=== PATIENT | female | born 1990 | race Caucasian/White ===

== ENCOUNTER → 2017-10-02 15:24 | Outpatient (CLI) | payer OTHER, SELFPAY ==
[2017-10-02 17:47] LABS: Hematocrit 30.2 % (36-46); Hemoglobin 10.7 g/dL (12.0-16.0)
[2017-10-02 18:20] LABS: GTT (PREG) 1 Hour PP 50gm Dose 136 mg/dL (76-139)
== END ==
PROVIDERS: PCP General Practice; Visit Provider Family Medicine
DX: O26.90 Pregnancy related conditions, unspecified, unspecified trimester (principal); Z34.92 Encounter for supervision of normal pregnancy, unspecified, second trimester
CPT/HCPCS: 36415; 82950; 85014; 85018; 86850

== ENCOUNTER → 2017-10-05 15:55 | Outpatient (CLI) | payer OTHER, SELFPAY | PROVIDERS: PCP General Practice; Visit Provider Family Medicine | DX: Z34.02 Encounter for supervision of normal first pregnancy, second trimester (principal) | CPT/HCPCS: 36415; 86850 ==

== ENCOUNTER → 2017-12-01 15:44 | Outpatient (CLI) | payer OTHER, SELFPAY | PROVIDERS: PCP General Practice; Visit Provider Family Medicine | DX: Z34.93 Encounter for supervision of normal pregnancy, unspecified, third trimester (principal) | CPT/HCPCS: 87081; 87653 ==

== ENCOUNTER → 2017-12-08 14:52 | Outpatient (CLI) | payer OTHER, SELFPAY ==
[2017-12-08 15:55] LABS: Alanine Aminotransferase 55 IU/L (9-52); Albumin 3.5 g/dL (3.5-5.0); Alkaline Phosphatase 153 U/L (38-126); Aspartate Aminotransferase 53 IU/L (14-36); Bilirubin Total 0.3 mg/dL (0.2-1.3); Blood Urea Nitrogen 6 mg/dL (7-17); Calcium 8.9 mg/dL (8.4-10.2); Carbon Dioxide 18 mmol/L (22-32); Chloride 109 mmol/L (98-107); Estimated Glomerular Filt Rate > 60.0 mL/min (>60); Globulin 3.4 g/dL (1.7-4.1); Glucose 109 mg/dL (70-100); HEMOLYSIS < 15 (0-50); Potassium 3.9 mmol/L (3.4-5.1); Sodium 139 mmol/L (137-145); Total Protein 6.9 g/dL (6.3-8.2)
[2017-12-10 11:43] LABS: Bile Acids, Total 4.1 umol/L (< 10.1)
== END ==
PROVIDERS: PCP General Practice; Visit Provider Family Medicine
DX: L28.2 Other prurigo (principal)
CPT/HCPCS: 36415; 80053; 82239

== ENCOUNTER 2017-12-11 14:01 | Outpatient (CLI) | payer OTHER, SELFPAY ==
--- NOTE | 2017-12-11 14:49 | PM.OBTRLD ---
Visit Information Visit Information Date of evaluation: 12/11/17 Primary OB Provider: Leah Wagner Reason for Evaluation: Yes rule out labor and Yes rupture of membranes Evaluation Evaluation Baseline heart rate: 135 Variability: Moderate (11-25) monitor accelerations: Present monitor decelerations: Absent Category of Tracing: I Cervical dilation (cm): 0 Cervical effacement (%): 50 Non-invasive Membranes Rupture Test: negative Diagnosis, Plan/Disposition Final Diagnosis (1) Irregular contractions: Current Visit: No Status: Acute Plan/Disposition Plan: Pt without ROM. Not in labor. OB Disposition: home
== END 2017-12-11 15:02 | disposition home or self-care (01) ==
LOC: LABOR 14:54 → OB 12-15 08:47
PROVIDERS: PCP General Practice; Visit Provider Family Medicine
DX: Z3A.37 37 weeks gestation of pregnancy (principal); O09.893 Supervision of other high risk pregnancies, third trimester
CPT/HCPCS: 59025; 84112; G0378; G0379

== ENCOUNTER 2017-12-23 13:26 | Outpatient (CLI) | payer OTHER, SELFPAY ==
--- NOTE | 2017-12-23 14:13 | PM.OBTRLD ---
Visit Information Visit Information Date of evaluation: 12/23/17 Primary OB Provider: Leah Wagner Reason for Evaluation: Yes rupture of membranes Comments/Additional reasons for admission: Pt with large gush of fluid this afternoon, clear. No significant contractions. No vaginal bleeding. Exam Narrative Exam Narrative: Gen: NAD, sitting comfortably in bed, appears well Abd: soft, gravid, nontender Objective Labs Labs: Abdominal u/s: Fetus vertex position Evaluation Evaluation Baseline heart rate: 145 Variability: Moderate (11-25) monitor accelerations: Present monitor decelerations: Absent Category of Tracing: I Cervical dilation (cm): 2 Cervical effacement (%): 50 station: -2 Non-invasive Membranes Rupture Test: negative Diagnosis, Plan/Disposition Final Diagnosis (1) Fluid loss: Current Visit: Yes Status: Acute Plan/Disposition Plan: Amniosure negative. Not in labor. Stable for d/c home. Membranes stripped today. OB Disposition: home
== END 2017-12-23 14:28 | disposition home or self-care (01) ==
LOC: LABOR 14:27 → OB 12-24 16:54
PROVIDERS: PCP General Practice; Visit Provider Family Medicine
DX: Z03.71 Encounter for suspected problem with amniotic cavity and membrane ruled out (principal); Z3A.39 39 weeks gestation of pregnancy
CPT/HCPCS: 59025; 76815; 84112; G0378; G0379

== ENCOUNTER 2017-12-25 14:32 | Observation (INO) | payer OTHER, SELFPAY ==
--- NOTE | 2017-12-25 16:34 | PM.OBTRLD ---
Visit Information Visit Information Date of evaluation: 12/25/17 Primary OB Provider: Leah Wagner Reason for Evaluation: Yes rule out labor Evaluation Evaluation Baseline heart rate: 145 Variability: Moderate (11-25) monitor accelerations: Present monitor decelerations: Absent Contraction Frequency (minutes): 3 Uterine Contraction Intensity: Moderate Category of Tracing: I Cervical dilation (cm): 1 Cervical effacement (%): 50 station: -1 Diagnosis, Plan/Disposition Final Diagnosis (1) Irregular contractions: Current Visit: No Status: Acute Plan/Disposition OB Disposition: home
== END 2017-12-25 20:00 | disposition home or self-care (01) ==
PROVIDERS: Admitting Provider Family Medicine; PCP General Practice; Visit Provider Family Medicine
DX: O62.2 Other uterine inertia (principal); Z3A.39 39 weeks gestation of pregnancy
CPT/HCPCS: 59025; 59050; G0378; G0379

== ENCOUNTER 2017-12-26 07:12 | Inpatient (IN) | payer OTHER, SELFPAY ==
--- NOTE | 2017-12-26 09:06 | P.HPOB_ITS ---
OB HPI Date/Time Date of admission: 12/26/17 Date Patient Seen: 12/26/17 Time Patient Seen: 08:59 History of Present Condition Chief complaint: OBS : 1 Para: 0 Estimated Date of Delivery: 12/29/17 Estimated Gestational Age (weeks): 39 Narrative: Maddie Armijo is a 27 year old female one para 0 seen and followed by Dr. Leah Wagner during this . The patient transferred care [facility] [employer] [facility] at approximately 27 weeks we obtained by fax her early laboratory studies. She had an early ultrasound at 10 weeks . Her 1st and 2nd trimester screening for abnormalities was negative. Her initial hematocrit was 399. With a normal platelet count. Her hepatitis B surface antigen was negative. Her rubella screen was positive. Her rubella was positive. Her VDRL was nonreactive. Chlamydia and GC screens were negative. Hepatitis a was negative. Her Pap smear appeared to be ASCUS with no HPV done. Her HIV was nonreactive. GBS screen done here at [facility] was negative. Subsequent hematocrit at 30 weeks of was 30. Her 1 hr Glucola screen was 136. The patient was seen and followed at [facility] from the 27th week of her . Her blood pressures remained normotensive. And her urines remained negative for glucose and protein. Under the care at [facility] her weight went from 181 lb to 194 lb. She had adequate fundal growth. The patient is Rh negative and received RhoGAM at 28 weeks of . The patient was seen the day before and her cervix was approximately 1 cm dilated. The patient presented at at 0 700 hr and her cervix was 4 cm. The patient was admitted. Indications Other reason(s) for admission: Active labor History of Present care: good care and pounds weight gain (30) Dating criteria: LMP confirmed by 1st trimester US Ultrasounds: normal 1st trimester US and normal mid trimester US Obstetrical complications: none Medical complications: none Preadmission Labs Blood type: A (-) negative -: Antibody screen: negative, Cystic fibrosis screen: unknown, GBS status: negative, HBsAG: negative, HIV: negative, HSV 1: positive, HSV 2: negative and RPR/VDLR: negative -: Chlamydia screen: not detected and Gonorrhea screen: not detected -: Rubella: immune and Varicella: unknown HCT: 30 HCAB: negative PAP: Abnormal Integrated screen: Negative Sequential screen: Negative Quad screen: Normal Cell-free DNA: Not done Meds Home Medications Medication Instructions Recorded Confirmed Type omeprazole 10 mg capsule,delayed 10 mg PO DAILY #30 cap 12/15/17 Rx release triamcinolone acetonide 0.1 % 1 applictn TOP BID #80 gram 12/15/17 Rx topical cream Review of Systems Review of Systems All systems reviewed & are unremarkable except as noted in HPI and below Exam Const General: cooperative and healthy appearing [facility] Head: normal to inspection Ears: hearing grossly normal bilaterally Nose: external nose normal Face and sinus: normal facial exam Mouth: oral mucosae normal, lip normal, tongue normal and moist mucous membranes Teeth and gingiva: dentition normal Throat: posterior oropharynx normal Eyes General: appearance normal, both eyes and all related structures Neck Neck: normal visual inspection and full ROM Chest Chest: normal inspection of the chest and normal palpation of entire chest wall Breast inspection: normal inspection of the breasts and normal inspection of the axillae Breast Palpation: normal palpation of the breasts and normal palpation of the axillae Resp Effort & Inspection: normal respiratory effort Auscultation: clear to auscultation bilaterally Cardio Palpation: normal PMI Rate: regular rate Rhythm: regular rhythm Heart Sounds: S1 normal and S2 normal GI Inspection: normal to inspection Palpation: soft and no hepatosplenomegaly Percussion: normal to percussion Auscultation: normal bowel sounds External Female Exam: external appearance normal and normal appearance of the urethra Speculum Exam - Vagina: normal appearance of the vagina and normal vaginal discharge Manual OB Exam: dilated (5 cm), effaced (100%) and station (-1) Uterus Location (Fundal Height): 37 Presentation: vertex Estimated Weight (lbs): 7 Back/Spine/Pelvis Thoracic/Lumbar Spine: thoracic and lumbar spine normal to inspection Skin General: no rashes or lesions noted Neuro General: alert, oriented x3, tone normal and moves all extremities Cognition: normal cognition Speech: speech normal Gait: normal gait Motor: muscle tone normal throughout Sensory Exam: no sensory deficits noted Extrem General: normal to inspection and normal exam except as noted Psych Appearance: grossly normal and well kempt Mental Status: mental status grossly normal Speech and Movement: speech and movement normal Assessment and Plan (1) Spontaneous onset of labor: Onset Date: ~12/26/17 Problem details: Spontaneous onset of labor approximately 0 600 hr Current visit: Yes Status: Acute Admit patient to labor and delivery Start IV Routine laboratory studies Epidural as indicated Artificial rupture membrane Plan: Plan: Please see above
[2017-12-26 09:27] LABS: Add Manual Diff / Slide Review NO; Basophils Percent Auto 0.2 % (0-2); Eosinophils Percent Auto 0.6 % (2-4); Hematocrit 34.4 % (36-46); Hemoglobin 11.5 g/dL (12.0-16.0); Mean Corpuscular HGB Conc 33.5 % (30-36); Mean Corpuscular Hemoglobin 28.7 PG (26-34); Mean Corpuscular Volume 85.9 fL (80-100); Monocytes Percent Auto 5.5 % (3-14); Neutrophils Absolute Auto 9000 /uL (3000-5900); Neutrophils Percent Auto 75.7 % (50-75); Platelet Count 203 X10^3/uL (150-400); Red Cell Distribution Width 13.5 % (11.6-14.8); White Blood Cell Count 11.9 X10^3/uL (4.5-11.0)
[2017-12-26 10:02] VITALS: BP 120/76
[2017-12-26] MEDS: LACTATED RINGERS 1,000 ML 125 ML IV ×2 (11:47→14:05)
--- NOTE | 2017-12-26 16:17 | PM.OBPNLAB ---
Date/Time Date Patient Seen: 12/26/17 Time Patient Seen: 10:30 Pain Control Pain control: tolerating well Pelvic Exam Dilation (cm): 5 Effacement (%): 100 station: -1 Amniotic membrane status: Ruptured Comments: After informed consent, AROM performed with production of clear fluid. Contractions Date/Time contractions began: 9am 12/25/17 Contractions on admission: regular Monitor mode: External Contraction frequency (min): 6 Contraction duration (min): 1 Contraction pattern: Irregular Contraction intensity: Strong/Firm Status status: Category l Heart Rate Baseline: 140 Monitor Accelerations: Present Monitor Decelerations: Absent Monitor Variability: Moderate Assessment and Plan Comments: 27yo at 39w4d who presented in active labor. Minimal progress thus far, AROM performed with production of clear fluid. Rh negative, GBS negative. - Expectant management, anticipate - FHT reassuring - GBS negative, no prophylaxis indicated - Epidural for pain control if desired
[2017-12-26] MEDS: LACTATED RINGERS 1,000 ML 100 ML IV (17:00)
--- NOTE | 2017-12-26 21:04 | PM.OBPRVD ---
Delivery date: 12/26/17 Intrapartal events: None Induction method: none Delivery augmentation: rupture of membranes Delivery monitor: external FHT Route of delivery: Episiotomy description: None Laceration description: Perineal - 1st Degree Delivery repair: chromic (3-0) Estimated blood loss (mL): 150 Anesthesia type: Epidural Complications: None Narrative: PROCEDURE: at 39w4d presented in active labor and was admitted to Labor and Delivery. The patient progressed through the 1st stage over 34.5 hours. AROM was performed to help labor progress with production of clear fluid. Pain was controlled with an epidural. The patient progressed through the 2nd stage over 1 hour and delivered a viable male infant with APGARs 8/9 at 20:36 via . The perineum and vagina were inspected with 1st degree laceration repaired with 3-O Chromic. PREPROCEDURE DIAGNOSIS: Intrauterine at 39w4d GBS negative RH positive POSTPROCEDURE DIAGNOSIS: Intrauterine at 39w4d, delivered Same as preprocedure PROCEDURE: Spontaneous vaginal delivery ROM APPEARANCE: Clear BABY A DELIVERY TIME: 20:36 BABY A WEIGHT: [id number] BABY A POSITION: LOT BABY A NUCHAL CORD: No PLACENTA DELIVERY TIME: 20:40 PLACENTA APPEARANCE: Intact Baby 1: gender: Male Presentation: vertex Placenta delivery description: Spontaneous cord vessel description: 3 Vessels score (1 min): 8 score (5 min): 9 Plan for aftercare: Normal care Cord blood sent due to Rh negative status
[2017-12-26] MEDS: IBUPROFEN 600 MG TABLET PO (23:31)
[2017-12-27] MEDS: PRENATAL VIT,CALC/IRON/FOLIC 1 TABLET 1 TAB PO (08:33)
[2017-12-27] MEDS: DOCUSATE 250 MG CAPSULE PO (08:33)
[2017-12-27] MEDS: FERROUS GLUCONATE 324 MG TABLET PO (08:33)
[2017-12-27] MEDS: IBUPROFEN 600 MG TABLET PO ×2 (08:33→14:39)
--- NOTE | 2017-12-27 12:52 | PM.OBPN.1 ---
Subjective - OB Patient comments: no complaints baby status: doing well feeding status: exclusively breast feeding Narrative: Pt is doing well thus far. Her lochia is decreasing appropriately and she is passing gas. She has ambulated in the room. Her pain is adequately controlled. She is with good latch, no pain. Date Patient Seen: 12/27/17 Time Patient Seen: 12:30 Exam Narrative Exam Narrative: Gen: NAD, sitting comfortably on bench, appears well CV: RRR, no murmurs Resp: clear to auscultation bilaterally Abd: soft, appropriately tender, fundus firm and below the umbilicus, normoactive bowel sounds Ext: trace edema Objective Labs Result Diagrams: 12/26/17 08:50 Labs: Laboratory Results - last 24 hr 12/27/17 07:05 Maternal Bleed Negative Assessment & Plan (1) Spontaneous onset of labor: Problem details: Spontaneous onset of labor approximately 0 600 hr Status: Acute Current Visit: Yes (2) (spontaneous vaginal delivery): Status: Acute Current Visit: Yes Plan Comments: 27yo PPD #1 s/p without complications. Pt doing well thus far. - Normal care - Rhogam due to Rh positive baby - support Time Spent With Patient Total time spent is greater than 50% in coordination of care (as documented) at patient's floor/unit and/or counseling patient: 25 - 35 minutes
[2017-12-27] MEDS: RHO(D) IMMUNE GLOBULIN 1,500 UNIT SYRINGE 1500 UNIT IM (13:01)
[2017-12-28] MEDS: IBUPROFEN 600 MG TABLET PO ×2 (01:11→08:43)
[2017-12-28] MEDS: PRENATAL VIT,CALC/IRON/FOLIC 1 TABLET 1 TAB PO (08:43)
[2017-12-28] MEDS: DOCUSATE 250 MG CAPSULE PO (08:43)
--- NOTE | 2017-12-28 09:53 | P.DS_ITS ---
Discharge Providers Date of admission: 12/26/17 09:18 Primary care physician: Jacques Brush Consults: 12/26/17 21:23 Consult to Group Supervisor Yard Routine Comment: Discharge provider: Leah Wagner MD Discharge Date: 12/28/17 Summary Date Patient Seen: 12/28/17 Time Patient Seen: 08:00 Hospital Course: The patient was admitted in active labor. AROM was performed with production of clear fluid to help labor progressed. She received an epidural for pain control. The patient then had a spontaneous vaginal delivery of a viable baby boy on 12/26/2017 without any complications. Baby weighed 6 lb 15 oz. A first- degree perineal laceration was repaired. , there were no complications. At the time of discharge the patient was voiding, ambulating, passing flatus without difficulty. Her lochia was decreasing appropriately. She is breast feeding with good latch. She is undecided regarding control, however has used the Nexplanon the past. Peripartum Data Infant Delivery Method: Natural Vaginal Laceration description: Perineal - 1st Degree Episiotomy description: None Procedures: Spontaneous vaginal delivery complications: none [place] 1: Gender: Male Disposition of : home Discharge Diagnosis (1) Spontaneous onset of labor: Status: Acute Problem Details: Spontaneous onset of labor approximately 0 600 hr (2) (spontaneous vaginal delivery): Status: Acute Status at Discharge Functional status at discharge: independent ambulation Overall status at discharge: patient is progressing back to baseline Time Spent with Patient Total time spent providing and/or coordinating discharge services: Greater than 30 minutes Specific discharge activities: No intercourse for 6 weeks Objective Labs Result Diagrams: 12/26/17 08:50 Discharge Plan Discharge Plan Patient Disposition: Home Discharge Med Rec/Prescriptions Prescriptions: New acetaminophen 325 mg Tablet 650 mg PO Q6HR PRN (Reason: Pain, Mild (1-3)) Qty: 30 RF: 0 benzocaine-menthol [Dermoplast (with menthol)] 20-0.5 % Aerosol 1 spray Topical Q1HR PRN (Reason: perineal pain) Qty: 15 RF: 0 ibuprofen 600 mg Tablet 600 mg PO Q6HR PRN (Reason: Pain, Mild (1-3)) Qty: 30 RF: 0 docusate sodium 250 mg Capsule 250 mg PO DAILY Qty: 30 RF: 0 lanolin [[id number]] Cream 1 applic Topical PRN PRN (Reason: Tenderness) Qty: 15 RF: 0 vit,[id number] [Prenatabs Rx] 29 mg iron- 1 mg Tablet 1 tab PO DAILY Qty: 30 RF: 0 Continue omeprazole 10 mg capsule,delayed release(DR/EC) 10 mg PO DAILY Qty: 30 RF: 2 Discontinued triamcinolone acetonide 0.1 % cream 1 applictn TOP BID Qty: 80 RF: 0 Follow up/Referrals: Leah Wagner MD [Physician] - 6 Weeks Provider Discharge Instructions Diet: Regular Skin/Wound/Dressing Care Report to your healthcare provider any signs of infection, such as:: chills, fever, increased pain and unusual drainage Visit Report/Discharge Packet Instructions: DI for Labor and Delivery, Vaginal Discharge Data Primary Care Provider: Jacques Brush Attending Provider: Leah Wagner Admit Date/Time: 12/26/17 09:18
[2017-12-28 10:11] VITALS: BP 120/76; PULSE 82; RESP 16; TEMP 36.9
== END 2017-12-28 13:20 | disposition home or self-care (01) | DRG 807 ==
PROVIDERS: Admitting Provider Family Medicine; PCP General Practice; Visit Provider Family Medicine
DX: O70.0 First degree perineal laceration during delivery (principal); Z37.0 Single live birth; Z3A.39 39 weeks gestation of pregnancy
CPT/HCPCS: 01967; 59050; 59410; 85025; 85461; 86850; 86870; 86900; 86901; G0378; G0379; J2790

== ENCOUNTER → 2019-12-09 09:11 | Outpatient (CLI) | payer OTHER, SELFPAY ==
[2019-12-09 12:20] LABS: Hematocrit 29.6 % (36-46); Hemoglobin 10.1 g/dL (12.0-16.0)
[2019-12-09 12:53] LABS: GTT (PREG) 1 Hour PP 50gm Dose 174 mg/dL (76-139)
== END ==
PROVIDERS: PCP General Practice; Referring Provider Family Medicine; Visit Provider Family Medicine
DX: Z34.90 Encounter for supervision of normal pregnancy, unspecified, unspecified trimester (principal); Z3A.24 24 weeks gestation of pregnancy
CPT/HCPCS: 36415; 82950; 85014; 85018; 86850

== ENCOUNTER → 2019-12-22 06:49 | Outpatient (CLI) | payer OTHER, SELFPAY ==
[2019-12-22 08:45] LABS: Glucose Fasting Gestational 87 mg/dL (76-95)
[2019-12-22 10:26] LABS: Glucose 1 Hour Gest 187 mg/dL (76-180)
[2019-12-22 10:29] LABS: Glucose Tol Interp,Gestational INTERPRETATION
[2019-12-22 12:21] LABS: Glucose 3 Hour Gest 137 mg/dL (76-140)
[2019-12-22 15:39] LABS: Glucose 2 Hour Gest 167 mg/dL (76-155)
== END ==
PROVIDERS: PCP General Practice; Referring Provider Family Medicine; Visit Provider Family Medicine
DX: R82.90 Unspecified abnormal findings in urine (principal)
CPT/HCPCS: 36415; 82951; 82952

== ENCOUNTER → 2020-02-01 15:20 | Outpatient (CLI) | payer OTHER, SELFPAY ==
[2020-02-02 11:39] LABS: Strep Grp B PCR NEG for Grp B Strep
== END ==
PROVIDERS: PCP General Practice; Visit Provider Family Medicine
DX: Z34.90 Encounter for supervision of normal pregnancy, unspecified, unspecified trimester (principal); Z3A.36 36 weeks gestation of pregnancy
CPT/HCPCS: 87651; 87653

== ENCOUNTER → 2020-02-15 14:36 | Outpatient (CLI) | payer OTHER, SELFPAY ==
--- NOTE | 2020-02-15 14:37 | DI.US.S_ITS ---
PROCEDURE: US OB LIMITED INDICATIONS: size < dates OUTSIDE/PRIOR DATING DATA: First dating scan (date and location): 07/15/2019 . Estimated date of delivery (SINA) from first dating scan: 02/28/2020 . TECHNIQUE: Real-time scanning was performed of the fetus, with image documentation and biometric measurements. Endovaginal scanning: No COMPARISON: None. FINDINGS: General: A single living intrauterine gestation is present. Presentation: Anterior Placenta: Placental position is vertex, without previa. Amniotic fluid index: 15.8 cm, normal range is 5-24 cm. heart rate: 151 beats per minute. Maternal cervical canal: 4.9 cm cm long. Normal lower limit is 2.5 cm. biometrics: Biparietal diameter: 37 weeks Head circumference: 37 weeks Abdominal circumference: 37 weeks 3 days Femur length: 37 weeks Estimated gestational age from initial scan: 38 weeks 1 day Composite gestational age from present scan: 37 weeks 1 Estimated weight and percentile: 3142 g, 38th percentile Measurement variability for biometric dating: +/- 7 days from 14 weeks to 15 weeks 6 days gestation, +/- 10 days from 16 weeks to 21 weeks 6 days gestation, +/- 2 weeks from 22 weeks to 27 weeks 6 days gestation, +/- 3 weeks for 28 weeks gestation or later. weight reference: 4500 g or EFW >90/95% is considered macrosomia or large for gestational age. EFW <10% is small for gestational age. EFW 5% or less is considered intra-uterine growth restriction. Other: Not applicable. IMPRESSION: Single living IUP redemonstrated and interval growth is normal. Dictated by: Yury Frias [facility] Interpreted: Leticia Mayberry MD on 02/15/2020 at 15:36 Approved by: Leticia Mayberry M.D. on 02/15/2020 at 16:54
== END ==
PROVIDERS: PCP General Practice; Referring Provider Family Medicine; Visit Provider Family Medicine
DX: O26.843 Uterine size-date discrepancy, third trimester (principal); Z3A.37 37 weeks gestation of pregnancy
CPT/HCPCS: 76815

== ENCOUNTER 2020-02-22 20:54 | Inpatient (IN) | payer OTHER, SELFPAY ==
[2020-02-22 20:55] VITALS: BP 115/63
[2020-02-22 21:22] LABS: COVID19 -Nasal RAPID Negative (Negative)
[2020-02-22 21:33] LABS: Add Manual Diff / Slide Review NO; Basophils Absolute Auto 0 /uL (0-100); Basophils Percent Auto 0.5 % (0-2); Eosinophils Absolute Auto 100 /uL (0-450); Eosinophils Percent Auto 1.3 % (2-4); Hematocrit 32.4 % (36-46); Hemoglobin 10.7 g/dL (12.0-16.0); Lymphocytes Absolute Auto 3000 /uL (1100-4500); Lymphocytes Percent Auto 32.9 % (25-40); Mean Corpuscular HGB Conc 33.1 % (30-36); Mean Corpuscular Hemoglobin 28.4 PG (26-34); Mean Corpuscular Volume 85.8 fL (80-100); Monocytes Absolute Auto 600 /uL (0-900); Monocytes Percent Auto 6.5 % (3-14); Neutrophils Absolute Auto 5300 /uL (1500-7000); Neutrophils Percent Auto 58.8 % (50-75); Platelet Count 201 X10^3/uL (150-400); Red Blood Cell Count 3.78 X10^6/uL (4.0-5.2); Red Cell Distribution Width 14.9 % (11.6-14.8); White Blood Cell Count 9.1 X10^3/uL (4.5-11.0)
[2020-02-22] MEDS: miSOPROStoL 25 MCG TABLET VAG (22:16)
[2020-02-23 06:16] LABS: Glucose 109 mg/dL (70-100)
[2020-02-23] MEDS: LACTATED RINGERS 1,000 ML 100 ML IV (08:18)
[2020-02-23] MEDS: OXYTOCIN PREMIX 30 UNIT/500 ML PLAST..BAG IV (08:19)
--- NOTE | 2020-02-23 08:52 | P.HPOB_ITS ---
OB HPI Date/Time Date of admission: 02/22/20 Date Patient Seen: 02/23/20 Time Patient Seen: 07:45 History of Present Condition Chief complaint: EVAL OF LABOR : 2 Para: 1 Estimated Date of Delivery: 02/28/20 Estimated Gestational Age (weeks): 39w2d Narrative: Maddie Armijo is a 29 year old at 39w2d here for elective IOL. complicated by GDMA1 with excellent control. Pt also with depression, stable on Zoloft. Is Rh negative, and received Rhogam on 12/09/19. The pt denies any regular contractions. No vaginal bleeding or LOF. She is feeling the baby move regularly. Indications Indication for induction OB: maternal discomfort History of Present care: good care, initiated at week # (10) and pounds weight gain (20) Dating criteria: LMP confirmed by 1st trimester US Ultrasounds: normal 1st trimester US and normal mid trimester US Obstetrical complications: gestational diabetes (A1) Medical complications: psychiatric (depression stable on Zoloft) Preadmission Labs Blood type: A (-) negative -: Antibody screen: negative, GBS status: negative, HBsAG: negative, HIV: negative and RPR/VDLR: negative -: Chlamydia screen: not detected and Gonorrhea screen: not detected -: Rubella: immune and Varicella: not immune HCT: 32.4 HCAB: negative PAP: Normal Integrated screen: Negative 1 hr GTT: 174 3 hr GTT: 1 hr (187), 2 hr (167) and 3 hr (137) Fasting blood glucose: 87 Prior (ies) History: 12/26/17 at 39w4d, [id number] male, no complications Evaluation Evaluation Baseline heart rate: 130 Variability: Moderate (11-25) monitor accelerations: Present monitor decelerations: Absent Contraction Frequency (minutes): 5 Uterine Contraction Intensity: Mild Status: Category l Cervical dilation (cm): 3 Cervical effacement (%): 50 station: -2 Laboratory results: Laboratory Tests 02/22/20 02/22/20 02/22/20 21:00 21:20 21:20 WBC 9.1 RBC 3.78 L Hgb 10.7 L Hct 32.4 L MCV 85.8 MCH 28.4 MCHC 33.1 RDW 14.9 H Plt Count 201 Neut % (Auto) 58.8 Lymph % (Auto) 32.9 [place] % (Auto) 6.5 Eos % (Auto) 1.3 L Baso % (Auto) 0.5 Neut # (Auto) 5300 Lymph # (Auto) 3000 [place] # (Auto) 600 Eos # (Auto) 100 Baso # (Auto) 0 Glucose COVID-19 PCR Negative Blood Type A Negative Antibody Screen Negative 02/22/20 21:20 WBC RBC Hgb Hct MCV MCH MCHC RDW Plt Count Neut % (Auto) Lymph % (Auto) [place] % (Auto) Eos % (Auto) Baso % (Auto) Neut # (Auto) Lymph # (Auto) [place] # (Auto) Eos # (Auto) Baso # (Auto) Glucose 109 H COVID-19 PCR Blood Type Antibody Screen PFS Medical History (Updated 01/27/20 @ 16:18 by Leah Wagner MD) Acne Anxiety Arteriovenous malformation (~2014) Arthritis (~2016) Backache Depression (~2017) Lymphadenopathy Maternal varicella, non-immune Migraine Mononucleosis Rh negative, maternal Sinusitis Streptococcal sore throat (spontaneous vaginal delivery) (~12/26/17) Surgical History (Updated 11/09/19 @ 11:03 by Carmen Morgan RN) H/O removal of cyst (~2014) [place] teeth extracted (~2013) Family History (Updated 11/09/19 @ 10:57 by Carmen Morgan, [place]VAR[place]) Mother Depression Schizophrenia Fibromyalgia Migraine Arthritis Father Hypertension Hyperlipidemia Grandfather Family estrangement Unknown whether patient has any health problems Grandmother Depression Dementia Grandfather Diabetes mellitus CVA (cerebral vascular accident) Myocardial infarction Grandmother Diabetes mellitus Myocardial infarction Family/Other Diabetes mellitus Sister Bipolar 1 disorder Sister ADD (attention deficit disorder) Social History marital status: number of children: 1 household members: spouse lives independently: Yes education level: college occupational status: unemployed current occupational exposures/hazards: No Previous occupational history: Currently in [employer] special raúl needs: No Smoking Status: Never smoker alcohol intake: former substance use type: does not use Meds Home Medications and Allergies Home Medications Medication Instructions Recorded Confirmed Type ferrous gluconate 240 mg (27 mg 240 mg PO DAILY 11/09/19 11/09/19 History iron) tablet prenat.vits,precious,[id number]-fvcf-obxts 1 tab PO DAILY 11/09/19 11/09/19 History sertraline 50 mg tablet 50 mg PO DAILY #90 tab 11/11/19 11/11/19 Rx blood-glucose meter #1 each 12/23/19 12/23/19 Rx blood sugar diagnostic See Rx Instructions .ROUTE 01/16/20 Rx .COMPLEX #100 strip lancets 28 gauge See Rx Instructions .ROUTE 01/16/20 Rx .COMPLEX #100 each Allergies Allergy/AdvReac Type Severity Reaction Status Date / Time No Known Drug Allergies Allergy Verified 11/09/19 10:16 Exam Vital Signs (past 8 hours): Gen: NAD, sitting comfortably in bed, appears well CV: RRR, no murmurs Resp: clear to auscultation bilaterally Abd: soft, nondistended, nontender, gravid Ext: no edema Estimated Weight (lbs): 6 Objective Labs Result Diagrams: 02/22/20 21:20 02/22/20 21:20 Labs: Laboratory Results - last 24 hr 02/22/20 02/22/20 02/22/20 21:00 21:20 21:20 WBC 9.1 RBC 3.78 L Hgb 10.7 L Hct 32.4 L MCV 85.8 MCH 28.4 MCHC 33.1 RDW 14.9 H Plt Count 201 Neut % (Auto) 58.8 Lymph % (Auto) 32.9 [place] % (Auto) 6.5 Eos % (Auto) 1.3 L Baso % (Auto) 0.5 Neut # (Auto) 5300 Lymph # (Auto) 3000 [place] # (Auto) 600 Eos # (Auto) 100 Baso # (Auto) 0 Glucose COVID-19 PCR Negative Blood Type A Negative Antibody Screen Negative 02/22/20 21:20 WBC RBC Hgb Hct MCV MCH MCHC RDW Plt Count Neut % (Auto) Lymph % (Auto) [place] % (Auto) Eos % (Auto) Baso % (Auto) Neut # (Auto) Lymph # (Auto) [place] # (Auto) Eos # (Auto) Baso # (Auto) Glucose 109 H COVID-19 PCR Blood Type Antibody Screen Assessment and Plan Assessment and Plan Assessment and Plan narrative: 29yo at 39w2d here for elective IOL. complicated by GDMA1 with excellent control. Pt also with depression on Zoloft. Received one dose of cytotec overnight, with minimal cervical change. Garcia score currently 8. Rh negative - received Rhogam at appropriate timing. GBS negative. - Expectant management, anticipate - Start pitocin, titrate as tolerated - Plan for AROM after more descent - FHT reassuring - Epidural for pain control when desired - GBS negative, no prophylaxis
--- NOTE | 2020-02-23 10:21 | P.PNOB_ITS ---
Date/Time Date Patient Seen: 02/23/20 Time Patient Seen: 10:00 Pain Control Pain control: tolerating well Pelvic Exam Dilation (cm): 40 Effacement (%): 50 station: -1 Amniotic membrane status: Ruptured Comments: After informed consent, AROM performed with production of clear fluid Contractions Monitor mode: External Pitocin rate (mU/min): 6 Contraction frequency (min): 3 Contraction pattern: Irregular Contraction intensity: Moderate Status status: Category l Heart Rate Baseline: 135 Monitor Accelerations: Present Monitor Decelerations: Absent Monitor Variability: Moderate Assessment and Plan Comments: 29yo at 39w2d here for elective IOL. complicated by GDMA1 with excellent control. Pt also with depression on Zoloft. Received one dose of cytotec overnight, with minimal cervical change. Now on pitocin. AROM performed with clear fluid present. Rh negative - received Rhogam at appropria te timing. GBS negative. - Expectant management, anticipate - Continue pitocin, titrate as tolerated - FHT reassuring - Epidural for pain control when desired - GBS negative, no prophylaxis
--- NOTE | 2020-02-23 14:47 | PM.OBPRVD ---
Labor & Delivery Delivery date: 02/23/20 Estimated blood loss (mL): 150 Anesthesia Type: Epidural Complications: None Narrative: PROCEDURE: at 39w1d presented for elective IOL and was admitted to Labor and Delivery. The patient progressed through the 1st stage over 4 hours. She received one dose of cytotec, and then pitocin. AROM was performed with production of clear fluid. Pain was controlled with an epidural. The patient progressed through the 2nd stage over 7 minutes and delivered a viable female with APGARs 8/9 at 14:20 via without complications. The perineum and vagina were inspected with no lacerations. PREPROCEDURE DIAGNOSIS: Intrauterine at 39w1d Depression GDMA1 GBS negative RH negative POSTPROCEDURE DIAGNOSIS: Intrauterine at 39w2d, delivered Same as preprocedure PROCEDURE: Spontaneous vaginal delivery INDUCTION: Yes, cytotec LABOR AUGMENTATION: Pitocin, AROM ROM APPEARANCE: Clear BABY A DELIVERY TIME: 14:20 BABY A OUTCOME: Viable BABY A SEX: Femael BABY A WEIGHT: 6lb1.8oz BABY A PRESENTATION: Vertex BABY A POSITION: OA BABY A NUCHAL CORD: Body cord x 1 BABY A # CORD VESSELS: 3 BABY A CORD GASES OBTAINED: No PLACENTA DELIVERY TIME: 14:27 PLACENTAL DELIVERY TYPE: Spontaneous PLACENTA APPEARANCE: Intact Baby 1: gender: Female score (1 min): 8 score (5 min): 9 Plan for aftercare: Normal care Cord blood for Rh status
[2020-02-23] MEDS: IBUPROFEN 600 MG TABLET PO (18:15)
[2020-02-24] MEDS: IBUPROFEN 600 MG TABLET PO ×2 (01:01→08:01)
[2020-02-24] MEDS: DOCUSATE 100 MG CAPSULE PO (08:01)
[2020-02-24] MEDS: PRENATAL VIT,CALC/IRON/FOLIC 1 TABLET 1 TAB PO (08:01)
[2020-02-24] MEDS: SERTRALINE 50 MG TABLET PO (08:04)
--- NOTE | 2020-02-24 09:28 | PM.OBDS.1 ---
Discharge Providers Provider Date of admission: 02/22/20 20:54 Discharge Date: 02/24/20 Primary care physician: Jacques Brush DO Consults: 02/24/20 14:39 Consult to Barrel Driller Routine Comment: Discharge provider: Leah Wagner MD Summary Hospital Course Date Patient Seen: 02/24/20 Time Patient Seen: 07:50 Procedures: Spontaneous vaginal delivery Hospital Course: The patient presented for elective induction of labor. She received Cytotec and then Pitocin for induction. AROM was performed with clear fluid present. She received an epidural for pain control. The patient progressed to complete and had a spontaneous vaginal delivery of a viable baby girl at 2:20 p.m. on 02/23/2020 without any complications. There were no lacerations. , there were no complications. Time of discharge she was voiding, ambulating, and passing flatus without difficulty. Her lochia was decreasing appropriately. Her pain was adequately controlled. She was breast-feeding with good latch. She will follow up in clinic in 6 weeks for her check. She desires a Mirena IUD for control. Peripartum Data Delivery Method: Natural Vaginal Laceration Description: None Episiotomy description: None Procedures: Spontaneous vaginal delivery complications: none 1: Gender: Female Disposition of : home Status at Discharge Cognitive/behavioral status at discharge: oriented Functional status at discharge: independent ambulation Overall status at discharge: patient is progressing back to baseline Time Spent with Patient Time attestation: Total time spent providing and/or coordinating discharge services: Objective Labs Result Diagrams: 02/22/20 21:20 02/22/20 21:20 Labs: Laboratory Results - last 24 hr 02/24/20 06:40 Maternal Bleed Negative Discharge Plan Discharge Plan Patient Disposition: Home Discharge orders & Medications Prescriptions: New acetaminophen 325 mg Tablet 650 mg PO Q6HR PRN (Reason: Pain, Mild (1-3)) Qty: 30 RF: 0 docusate sodium [DOK] 100 mg Capsule 100 mg PO DAILY Qty: 30 RF: 0 ibuprofen 600 mg Tablet 600 mg PO Q6HR PRN (Reason: Pain, Mild (1-3)) Qty: 30 RF: 0 Continued sertraline 50 mg tablet 50 mg PO DAILY Qty: 90 RF: 2 prenat.vits,precious,vax-mxjw-junsc Tablet 1 tab PO DAILY RF: 0 ferrous gluconate [Ferate] 240 mg (27 mg iron) tablet 240 mg PO DAILY RF: 0 Discontinued (DME) blood-glucose meter [Accu-Chek Guide Me Glucose Mtr] Misc See Rx Instructions .ROUTE .MEDSUPPLY Qty: 1 RF: 0 blood sugar diagnostic [FreeStyle Lite Strips] Strip See Rx Instructions .ROUTE .COMPLEX Qty: 100 RF: 0 lancets [FreeStyle Lancets] 28 gauge misc See Rx Instructions .ROUTE .COMPLEX Qty: 100 RF: 0 Follow up/Referrals: Jacques Brush DO [Primary Care Provider] - Leah Wagner MD [Physician] - 6 Weeks Diet/Activity/Treatments Diet: Diet as Tolerated and Regular Skin/Wound/Dressing Care Report to your healthcare provider any signs of infection, such as:: chills, fever, increased pain and unusual drainage Visit Report/Discharge Packet Instructions: DI for Labor and Delivery, Vaginal Visit Report Forms: Patient Portal/API, Stroke Signs & Symptoms Discharge Data Primary Care Provider: Jacques Brush
[2020-02-24] MEDS: DERMOPLAST SPRAY 20% 60 ML 1 SPRAY TOP (11:46)
[2020-02-24 12:07] VITALS: BP 110/70; PULSE 71; RESP 16; TEMP 36.9
[2020-02-24] MEDS: RHO(D) IMMUNE GLOBULIN 1,500 UNIT SYRINGE 1500 UNIT IM (13:11)
== END 2020-02-24 13:30 | disposition home or self-care (01) | DRG 807 ==
PROVIDERS: Admitting Provider Family Medicine; PCP General Practice; Referring Provider Family Medicine; Visit Provider Family Medicine
DX: O24.420 Gestational diabetes mellitus in childbirth, diet controlled (principal); Z37.0 Single live birth; O99.344 Other mental disorders complicating childbirth; F32.89 Other specified depressive episodes; Z3A.39 39 weeks gestation of pregnancy; Z01.812 Encounter for preprocedural laboratory examination; Z20.828 Contact with and (suspected) exposure to other viral communicable diseases
CPT/HCPCS: 01967; 36415; 59050; 59200; 59410; 82947; 85025; 85461; 86850; 86900; 86901; 87635; G0379; J2590; J2790

== ENCOUNTER → 2022-05-02 06:38 | Outpatient (CLI) | payer OTHER, SELFPAY ==
--- NOTE | 2022-05-02 06:40 | DI.US.S_ITS ---
PROCEDURE: US OB <= 14 WEEKS FETUS INDICATIONS: DATING AND VIABILITY OUTSIDE/PRIOR DATING DATA: Last menstrual period (LMP): 02/03/2022. LMP-based estimated date of delivery (SINA): 11/10/2022. First dating scan (date and location): 05/02/2022. Estimated date of delivery (SINA) from first dating scan: 11/09/2022. TECHNIQUE: Real-time scanning was performed of the fetus and maternal pelvic organs, with image documentation. COMPARISON: None. FINDINGS: Embryo: [place]-rump length of 6.3 centimeters corresponding to gestational age of 12 weeks 5 days Heart rate: 162 beats per minute Maternal organs: Ovaries are unremarkable. Cervical length of 4.1 centimeters. IMPRESSION: Single living intrauterine with gestational age of 12 weeks 5 days by crown-rump length, concordant with clinical dates. We strive to produce accurate, complete, and clear reports of imaging services. To assist us in improving patient care, this report was composed using standard report templates and voice recognition software. Therefore, it may contain abnormal punctuation, insertions and/or omissions. Occasional wrong-word or sound-alike substitutions may occur. Though we review the report and make efforts to correct it, we do recommend that the report be read carefully in proper context to recognize any text inaccuracies. Dictated by: Sunny Arellano M.D. on 05/02/2022 at 8:20 Approved by: Sunny Arellano M.D. on 05/02/2022 at 8:32
== END ==
PROVIDERS: PCP Physician Assistant; Referring Provider Family Medicine; Visit Provider Family Medicine
DX: Z36.87 Encounter for antenatal screening for uncertain dates (principal); Z3A.12 12 weeks gestation of pregnancy
CPT/HCPCS: 76801

== ENCOUNTER → 2022-05-16 14:38 | Outpatient (CLI) | payer OTHER, SELFPAY | PROVIDERS: PCP Physician Assistant; Visit Provider Obstetrics & Gynecology | DX: Z34.80 Encounter for supervision of other normal pregnancy, unspecified trimester (principal) | CPT/HCPCS: 87086 ==

== ENCOUNTER → 2022-05-16 14:39 | Outpatient (CLI) | payer OTHER, SELFPAY ==
[2022-05-16 15:12] LABS: Add Manual Diff / Slide Review NO; Basophils Absolute Auto 0 /uL (0-100); Basophils Percent Auto 0.1 % (0-2); Eosinophils Absolute Auto 200 /uL (0-450); Eosinophils Percent Auto 1.9 % (2-4); Hemoglobin 11.6 g/dL (12.0-16.0); Lymphocytes Absolute Auto 2500 /uL (1100-4500); Lymphocytes Percent Auto 29.4 % (25-40); Mean Corpuscular HGB Conc 34.1 % (30-36); Mean Corpuscular Hemoglobin 30.4 PG (26-34); Mean Corpuscular Volume 89.3 fL (80-100); Monocytes Absolute Auto 400 /uL (0-900); Monocytes Percent Auto 5.1 % (3-14); Neutrophils Absolute Auto 5400 /uL (1500-7000); Neutrophils Percent Auto 63.5 % (50-75); Platelet Count 197 X10^3/uL (150-400); Red Blood Cell Count 3.81 X10^6/uL (4.0-5.2); Red Cell Distribution Width 13.6 % (11.6-14.8); White Blood Cell Count 8.5 X10^3/uL (4.5-11.0)
[2022-05-17 08:09] LABS: Varicella IgG Antibody <135 index (Immune >165)
[2022-05-18 11:25] LABS: RPR Screen Non Reactive (Non Reactive)
[2022-05-19 17:57] LABS: Hepatitis B Surface Antigen NEGATIVE s/c (NEGATIVE); Rubella Antibody IgG 26.3 IU/mL (>15)
[2022-05-19 18:10] LABS: HIV 1 & 2 Ab/Ag 4th Gen Combo NEGATIVE (NEGATIVE); Hep C Virus Ab w/Reflex Quant NEGATIVE s/c (NEGATIVE)
== END ==
PROVIDERS: PCP Physician Assistant; Referring Provider Obstetrics & Gynecology; Visit Provider Obstetrics & Gynecology
DX: Z34.80 Encounter for supervision of other normal pregnancy, unspecified trimester (principal)
CPT/HCPCS: 36415; 80055; 86787; 86803; 86850; 86900; 86901; 87086; 87389

== ENCOUNTER → 2022-06-20 11:10 | Outpatient (CLI) | payer OTHER, SELFPAY ==
[2022-06-20 14:31] LABS: GTT (PREG) 1 Hour PP 50gm Dose 159 mg/dL (76-139)
== END ==
PROVIDERS: PCP Physician Assistant; Referring Provider Family Medicine; Visit Provider Family Medicine
DX: O24.419 Gestational diabetes mellitus in pregnancy, unspecified control (principal)
CPT/HCPCS: 82950

== ENCOUNTER → 2022-06-27 07:58 | Outpatient (CLI) | payer OTHER, SELFPAY ==
[2022-06-27 09:09] LABS: Glucose Fasting Gestational 77 mg/dL (76-95)
[2022-06-27 10:03] LABS: Glucose 1 Hour Gest 153 mg/dL (76-180)
[2022-06-27 11:19] LABS: Glucose Tol Interp,Gestational INTERPRETATION
[2022-06-27 11:51] LABS: Glucose 3 Hour Gest 89 mg/dL (76-140)
[2022-06-27 12:04] LABS: Glucose 2 Hour Gest 132 mg/dL (76-155)
== END ==
PROVIDERS: PCP Physician Assistant; Referring Provider Family Medicine; Visit Provider Family Medicine
DX: O24.410 Gestational diabetes mellitus in pregnancy, diet controlled (principal); Z3A.12 12 weeks gestation of pregnancy
CPT/HCPCS: 36415; 82951; 82952

== ENCOUNTER → 2022-06-30 06:27 | Outpatient (CLI) | payer OTHER, SELFPAY ==
--- NOTE | 2022-06-30 06:28 | DI.US.S_ITS ---
PROCEDURE: US OB <= 14 WEEKS FETUS INDICATIONS: ANATOMY OUTSIDE/PRIOR DATING DATA: Last menstrual period (LMP): 02/03/2022. LMP-based estimated date of delivery (SINA): 11/10/2022. First dating scan (date and location): 05/02/2022. Estimated date of delivery (SINA) from first dating scan: 11/10/2022. The calculations are made using the clinical SINA of 11/10/2022. TECHNIQUE: Real-time scanning was performed of the fetus, with image documentation and biometric measurements. Endovaginal scanning: Not performed COMPARISON: [facility], OB <= 14 WEEKS FETUS, 05/02/2022, 6:51. FINDINGS: General: A single living intrauterine gestation is present. Presentation: Vertex. Placenta: Placental position is posterior , without previa. Amniotic fluid index: 12.1 cm, normal range is 5-24 cm. Single deepest vertical pocket is 3.2 cm. heart rate: 145 beats per minute beats per minute. Maternal cervical canal: 4.3 cm long. Normal lower limit is 2.5 cm. biometrics: Biparietal diameter: 4.9 cm, 21 weeks 0 days Head circumference: 19.4 cm, 21 weeks 4 days Abdominal circumference: 16.1 cm, 21 weeks 1 day Femur length: 3.8 cm, 22 weeks Clinically estimated gestational age: 21 weeks 0 days Composite gestational age from present scan: 21 weeks 3 days Estimated weight and percentile: 430 g, 73rd percentile Anatomic survey: Neuro: Ventricles are non-dilated at less than 10 mm. Cisterna magna is normal at 3-11 mm. Cerebellum is normal in size and morphology. Nuchal skin fold: Normal at less than 6 mm between 14-21 weeks gestational age. Face: Nose and lips, facial profile are normal. Spine: No evidence for spina bifida. Heart: 4-chambered heart is present, with normal ventricular outflow tracts. Diaphragm: Diaphragm is intact. Stomach: Left-sided stomach is present. Kidneys: No hydronephrosis. Normal is less than 5 mm in 2nd trimester, less than 7 mm in 3rd trimester. Cord: 3-vessel cord has orthotopic insertion. Bladder: Normal in size. Extremities: All 4 extremities identified. IMPRESSION: Single living intrauterine at 21 weeks 0 days, SINA of 11/10/2022. Normal anatomy survey. Estimated weight of 430 g, 73rd percentile. We strive to produce accurate, complete, and clear reports of imaging services. To assist us in improving patient care, this report was composed using standard report templates and voice recognition software. Therefore, it may contain abnormal punctuation, insertions and/or omissions. Occasional wrong-word or sound-alike substitutions may occur. Though we review the report and make efforts to correct it, we do recommend that the report be read carefully in proper context to recognize any text inaccuracies. Dictated by: Ar Jackson M.D. on 06/30/2022 at 11:25 Approved by: Ar Jackson M.D. on 06/30/2022 at 11:28
== END ==
PROVIDERS: PCP Physician Assistant; Referring Provider Family Medicine; Visit Provider Family Medicine
DX: Z34.82 Encounter for supervision of other normal pregnancy, second trimester (principal); Z3A.21 21 weeks gestation of pregnancy
CPT/HCPCS: 76801

== ENCOUNTER → 2022-07-18 10:44 | Outpatient (CLI) | payer OTHER, SELFPAY ==
[2022-07-18 11:53] LABS: Alanine Aminotransferase 82 IU/L (<35); Albumin 3.4 g/dL (3.5-5.0); Alkaline Phosphatase 57 U/L (38-126); Aspartate Aminotransferase 61 IU/L (14-36); Bilirubin Total 0.4 mg/dL (0.2-1.3); Blood Urea Nitrogen 7 mg/dL (7-17); Calcium 8.5 mg/dL (8.4-10.2); Carbon Dioxide 18 mmol/L (22-32); Chloride 109 mmol/L (98-107); Estimated Glomerular Filt Rate > 60 mL/min (>60); Globulin 3.3 g/dL (1.7-4.1); Glucose 118 mg/dL (70-100); HEMOLYSIS < 15 (0-50); Potassium 3.7 mmol/L (3.4-5.1); Sodium 135 mmol/L (137-145); Total Protein 6.7 g/dL (6.3-8.2)
[2022-07-20 11:36] LABS: Bile Acids 6.1 umol/L (0.0-10.0)
== END ==
PROVIDERS: PCP Physician Assistant; Referring Provider Family Medicine; Visit Provider Family Medicine
DX: L29.9 Pruritus, unspecified (principal)
CPT/HCPCS: 36415; 80053; 82239

== ENCOUNTER → 2022-08-12 07:37 | Outpatient (CLI) | payer OTHER, SELFPAY ==
--- NOTE | 2022-08-12 07:38 | DI.US.S_ITS ---
PROCEDURE: US ABDOMEN LIMITED INDICATIONS: elevated liver enzymes TECHNIQUE: Real-time scanning was performed of the abdominal and retroperitoneal organs, with image documentation. COMPARISON: None. FINDINGS: Liver: Liver is normal in size and homogeneous in echotexture. Gallbladder: Gallbladder is normal in sonographic appearance without gallstones, gallbladder wall thickening, pericholecystic fluid, or abnormal sonographic Gillette's. Biliary ducts: Intrahepatic bile ducts are non-dilated. Extrahepatic bile duct caliber measures 3 mm. Normal is 6-7 mm or less in diameter, or 10 mm or less post-cholecystectomy. Pancreas: Visualized portions of the pancreas are sonographically normal. Miscellaneous: No free abdominal fluid. IMPRESSION: Normal sonographic appearance of the liver, gallbladder, biliary tree, and pancreas. Dictated by: Ned Medina M.D. on 08/12/2022 at 9:08 Approved by: Ned Medina M.D. on 08/12/2022 at 9:16
== END ==
PROVIDERS: PCP Physician Assistant; Referring Provider Family Medicine; Visit Provider Family Medicine
DX: R79.89 Other specified abnormal findings of blood chemistry (principal)
CPT/HCPCS: 76705

== ENCOUNTER → 2022-08-26 07:40 | Outpatient (CLI) | payer OTHER, SELFPAY ==
[2022-08-26 09:15] LABS: Add Manual Diff / Slide Review NO; Basophils Absolute Auto 0 /uL (0-100); Basophils Percent Auto 0.2 % (0-2); Eosinophils Absolute Auto 100 /uL (0-450); Eosinophils Percent Auto 1.4 % (2-4); Hematocrit 32.9 % (36-46); Hemoglobin 11.3 g/dL (12.0-16.0); Lymphocytes Absolute Auto 2300 /uL (1100-4500); Mean Corpuscular HGB Conc 34.2 % (30-36); Mean Corpuscular Hemoglobin 30.7 PG (26-34); Mean Corpuscular Volume 89.6 fL (80-100); Monocytes Absolute Auto 500 /uL (0-900); Monocytes Percent Auto 5.7 % (3-14); Neutrophils Absolute Auto 5300 /uL (1500-7000); Neutrophils Percent Auto 64.7 % (50-75); Platelet Count 183 X10^3/uL (150-400); Red Blood Cell Count 3.67 X10^6/uL (4.0-5.2); Red Cell Distribution Width 12.4 % (11.6-14.8); White Blood Cell Count 8.2 X10^3/uL (4.5-11.0)
[2022-08-26 09:39] LABS: Glucose Fasting 90 mg/dL (70-100)
[2022-08-26 09:40] LABS: Glucose 1 Hour 155 mg/dL (70-170)
[2022-08-26 09:45] LABS: Alanine Aminotransferase 50 IU/L (<35); Albumin 3.3 g/dL (3.5-5.0); Albumin Globulin Ratio 1.1 (1.0-2.8); Alkaline Phosphatase 75 U/L (38-126); Aspartate Aminotransferase 36 IU/L (14-36); BUN Creatinine Ratio 12.2 (6-22); Bilirubin Total 0.2 mg/dL (0.2-1.3); Blood Urea Nitrogen 6 mg/dL (7-17); Calcium 8.4 mg/dL (8.4-10.2); Carbon Dioxide 20 mmol/L (22-32); Chloride 106 mmol/L (98-107); Estimated Glomerular Filt Rate > 60 mL/min (>60); Globulin 3.1 g/dL (1.7-4.1); Glucose 89 mg/dL (70-100); HEMOLYSIS < 15 (0-50); Potassium 3.8 mmol/L (3.4-5.1); Sodium 135 mmol/L (137-145); Total Protein 6.4 g/dL (6.3-8.2)
[2022-08-26 11:05] LABS: Glucose Tol Interpretation INTERPRETATION
[2022-08-26 12:05] LABS: Glucose 3 Hour 135 mg/dL (70-115)
[2022-08-26 12:10] LABS: Glucose 2 Hour 128 mg/dL (70-140)
== END ==
PROVIDERS: PCP Physician Assistant; Referring Provider Family Medicine; Visit Provider Family Medicine
DX: Z34.82 Encounter for supervision of other normal pregnancy, second trimester (principal); R74.8 Abnormal levels of other serum enzymes; Z3A.26 26 weeks gestation of pregnancy
CPT/HCPCS: 36415; 80053; 82951; 82952; 85025; 86850; 86870; 86886

== ENCOUNTER 2023-03-05 13:23 | Day surgery (SDC) | payer OTHER, SELFPAY ==
[2023-02-26 15:08] VITALS: BMI 27.6
--- NOTE | 2023-03-05 | PATH_ITS ---
[facility] Accession Number: [id number] No. of containers..02 Tissue . 01 Material submitted: . PART A: fallopian tube - BILATERAL TUBES PART B: endometrium - ENDOMETRIAL CURRETTINGS . 01 Diagnosis: A. Bilateral Tubes, Bilateral Salpingectomy: Complete cross sections of fallopian tubes x2; benign paratubal cysts present (10 mm in greatest dimension). Negative for significant atypia. . B. Endometrial Curettings: Portions of proliferative endometrium with patchy regions of stromal breakdown; negative for glandular hyperplasia, cytologic atypia or malignancy. MRV 03/13/2023 1504 Local . 01 Electronically signed: . Nilsa Hillman MD, Pathologist NPI- [id number] . 01 Gross description: . A. Received in formalin, labeled with the patient's name, , and bilateral tubes, consists of two unoriented fimbriated fallopian tubes measuring 5.5 x 0.4 cm and 5.2 x 0.6 cm, respectively. Both tubes have violaceous smooth serosa with multiple cystic structures measuring up to 1.0 cm in greatest dimension filled with jeong serous fluid. Sectioning reveals unremarkable stellate lumens. Clinic Scheduler sections to include one-half of bisected fimbriae and cross sections are submitted as follows: A1: Longer fallopian tube. A2: Lima fallopian tube. B. Received in formalin, labeled with the patient's name, , and endometrial curettings, consists of multiple jeong soft tissue fragments admixed with hemorrhagic material aggregating to 2.1 x 1.2 x 0.2 cm. Filtered and submitted entirely in cassette B1. ([id number]) /MRV 03/06/2023 1225 Local . 01 Pathologist provided ICD-10: Z30.2, N92.0 . 01 CPT . 652813, 872363 Specimen Comment: A courtesy copy of this report has been sent to [phone] Performed at: 01 [facility] [address] [place] [address], [place], [place] [id number] MD George Brooks MD Phone: [phone]
--- NOTE | 2023-03-05 13:32 | PM.GYNHP.1 ---
History of Present Illness History of Present Illness Reason for admission: vaginal bleeding and other (Desires permanent sterilization) Narrative: Maddie Armijo is a 32 year old female 3 para 2013 who presents for laparoscopic bilateral salpingectomy, D&C, NovaSure endometrial ablation. This is being done due to the desire for permanent sterilization and menorrhagia. 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 Elevated liver enzymes Gestational diabetes Rh negative, maternal Arteriovenous malformation (~2014) Mononucleosis Lymphadenopathy Anxiety Maternal varicella, non-immune Arthritis (~2016) Backache Migraine Depression (~2017) Streptococcal sore throat Sinusitis Acne (spontaneous vaginal delivery) (~12/26/17) Surgical History (System 12/15/22 @ 14:50 by Kori Shahid) S/P H/O removal of cyst (~2014) [place] teeth extracted (~2013) Family History (System 12/15/22 @ 14:50 by Kori Shahid) Mother Depression Schizophrenia Fibromyalgia Migraine Arthritis Father Hypertension Hyperlipidemia Grandfather Family estrangement Unknown whether patient has any health problems Grandmother Depression Dementia Grandfather Diabetes mellitus CVA (cerebral vascular accident) Myocardial infarction Grandmother Diabetes mellitus Myocardial infarction Family/Other Diabetes mellitus Sister Bipolar 1 disorder Sister ADD (attention deficit disorder) Social History (System 12/15/22 @ 14:50 by Kori Shahid) marital status: number of children: 1 household members: spouse, family and children lives independently: Yes caregiver/support person: Yes housing: house pets and animals: Yes (2 dogs) education level: college occupational status: employed (electrician assistant, 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 current occupational exposures/hazards: Yes Previous occupational history: Currently in [employer] special raúl needs: No travel history: over 6 months ago seatbelt use: always water heater temp set < 120 deg: Yes working smoke detector in home: Yes fire extinguisher in home: Yes carbon monox detector in home: Yes firearms in home: No do you feel safe at home: Yes Smoking Status: Never smoker second hand exposure: No alcohol intake: current substance use type: does not use during the past year weight has: remained stable well-balanced diet: daily or most days daily servings fruits/ve or more times/day caffeine: Yes (aware of 200mg limit) Type(s) of exercise: other (physical job) frequency: 5-6 times per week Meds Home Medications and Allergies Home Medications Medication Instructions Recorded Confirmed Type sertraline 50 mg tablet 50 mg PO DAILY #90 tabs 08/12/22 03/05/23 Rx Allergies Allergy/AdvReac Type Severity Reaction Status Date / Time No Known Drug Allergies Allergy Verified 03/05/23 13:33 Exam Narrative Exam Narrative: HEENT: No thyromegaly, no anterior cervical or supraclavicular lymphadenopathy. Lungs:Clear to auscultation bilaterally, no wheezes. Cardiovascular: Regular rate and rhythm, no murmurs, rubs, or gallops. Abdomen: Well-healed Pfannenstiel scars. No hepatosplenomegaly. No masses palpable. External genitalia: Normal Vagina: Normal Cervix: Normal Bimanual exam: 7 Week size anteverted uterus. Mobile. Extremities: No edema Assessment & Plan Assessment & Plan narrative: Assessment: 32-year-old 3 para 2012 who desires permanent sterilization Menorrhagia Plan: Laparoscopic bilateral salpingectomy, D&C, NovaSure endometrial ablation The risks, benefits, and alternatives to the procedure were explained to the patient. The risks including bleeding, infection, injury to the bowel, bladder, ureters, or uterine perforation. She understands all of these risks and agrees to proceed. A full par Q was held and consent form was signed. Time Spent With Patient Time with patient: less than 30 minutes
[2023-03-05 13:42] VITALS: BP 133/79; PULSE 86; RESP 16; TEMP 36.5; O2SAT 99; BMI 26.6
[2023-03-05] MEDS: ACETAMINOPHEN 325 MG TABLET 975 MG PO (13:56)
[2023-03-05] MEDS: LACTATED RINGERS 1,000 ML 42 ML IV (13:56)
--- NOTE | 2023-03-05 14:47 | PM.PREOP ---
Pre-operative Note Interval Note History & Physical reviewed/Exam performed by Physician: Yes Changes to H&P: No H&P completed within 30 days and has changed as indicated here:: 03/05/23
--- NOTE | 2023-03-05 15:28 | SUR.OPER ---
Lithotomy on padded OR bed, head on pillow, arms secured on padded arm boards at <90 degrees abduction. Legs secured in padded yellow fins stirrups.
[2023-03-05 16:00] VITALS: BP 111/63; PULSE 66; RESP 14; TEMP 37.2; O2SAT 98
[2023-03-05 16:05] VITALS: BP 116/67; PULSE 92; RESP 13; O2SAT 100
--- NOTE | 2023-03-05 16:05 | SUR.OPER ---
KEVON: 5CM LENGTH, 3.5 CM WIDTH, 96 SORTO, 62 SECOND ABLATION
--- NOTE | 2023-03-05 16:07 | P.OP_ITS ---
Operative Date/Time/Diagnoses Date of procedure: 03/05/23 Time of procedure: 16:07 Pre-op diagnosis: Desires permanent sterilization Menorrhagia Post-op diagnosis: same Procedure & Clinicians Procedure: Procedures Operation Date: 03/05/23 15:30 Actual Procedure Side Surgeon p Laparoscopic Bilateral Salpingectomy, Novasure endometrial ablation Yulisa Cheema MD Indications: 32-year-old 3 para 2103 who desires permanent sterilization and is experiencing menorrhagia Surgeon: Yulisa Cheema Anesthesia Type: General and Local Operative Notes Findings: Seven week size anteverted uterus Normal tubes and ovaries Normal appendix Normal liver and gallbladder Closure Type: primary Specimen(s): endometrial curettings Applied: catheter (in/out) Estimated blood loss (mL): 5 Blood products transfused: none Procedure in detail: After informed consent was obtained, the patient was taken to the operating room where she was placed in the dorsal supine position. After adequate general endotracheal anesthesia was achieved, she was placed in the dorsal lithotomy position, and prepped and draped in the usual sterile fashion. A time-out was performed. A bivalve speculum was placed into the vagina and the anterior lip of the cervix was grasped with a single-tooth tenaculum. The cervical os was sequentially dilated until the Zumi uterine manipulator could pass easily into the endometrial cavity. The single-tooth tenaculum was removed from the anterior lip of the cervix. The bivalve speculum was removed from the vagina. Attention was turned to the abdomen where 6 cc of 0.5% Marcaine with epinephrine were injected in the umbilical fold. A 5 mm incision was made. The Veress needle was placed into the peritoneal cavity, and its placement confirmed by aspiration and drop test. The abdominal cavity was insufflated with 3.2 L of CO2. The Veress needle was removed, and a 5 mm trocar was placed without difficulty. Two other trocars were placed 4 cm lateral to the midline on either side after 6 cc of 0.5% Marcaine with epinephrine were injected. Two 5 mm trocars were placed under direct visualization. The pelvis and abdomen were examined with findings noted above. The right tube was grasped with an atraumatic grasper at the fimbriated end. Using the power seal, the mesosalpinx was cauterized and cut all the way down to the cornua of the uterus. The tube was amputated at the cornua and removed through the trocar. This was repeated on the patient's left tube. Hemostasis was achieved. The instruments were removed from the abdomen. The CO2 was allowed to escape. The incisions were closed with 4-0 Monocryl in a subcuticular fashion. Steri-Strips and Allevyn dressings were placed. Attention was then turned to the abdomen where the Zumi uterine manipulator was removed from the uterus. A bivalve speculum was placed into the vagina and the anterior lip of the cervix was grasped with a single- tooth tenaculum. The cervical os was sequentially dilated to the #8 Hegar d ilator. Sharp curettage was performed yielding a moderate amount of endometrial curettings. The uterus was measured from the internal os to the fundus of the uterus and measured 5 cm. This was set on the NovaSure catheter and the generator. The NovaSure catheter passed easily into the endometrial cavity and was opened. The width was 3.5 cm. This was set on the generator. This indicated a power of 96 w. the cervix was capped, the cavity assessment was performed and passed. The cycle was initiated and lasted 1 minute and 2 seconds. The NovaSure catheter was closed, the cervix was uncapped, the catheter was removed from the uterus. The single-tooth tenaculum was removed from the anterior lip of the cervix. The bivalve speculum was removed from the vagina. Sponge, lap, and instrument counts were correct x2. The patient tolerated the procedure well, and was taken to PACU in stable condition. Complications: none Post-operative Condition: stable Disposition: PACU Plan for aftercare: Home after recovery
[2023-03-05 16:10] VITALS: BP 118/76; PULSE 87; RESP 15; O2SAT 100
[2023-03-05 16:15] VITALS: BP 120/76; PULSE 78; RESP 12; O2SAT 100
[2023-03-05 16:30] VITALS: BP 122/75; PULSE 72; RESP 16; TEMP 36.6; O2SAT 100
== END 2023-03-05 16:45 | disposition home or self-care (01) ==
PROVIDERS: PCP Physician Assistant; Referring Provider Obstetrics & Gynecology; Visit Provider Obstetrics & Gynecology
PROC: (CPT 58661; principal; 2023-03-05 15:30)
DX: Z30.2 Encounter for sterilization (principal); N92.0 Excessive and frequent menstruation with regular cycle; N83.8 Other noninflammatory disorders of ovary, fallopian tube and broad ligament
CPT/HCPCS: 58661; 58353; 81025; J1100; J1885; J2250; J2405; J2704; J3010

== ENCOUNTER → 2024-06-17 07:47 | Outpatient (CLI) | payer OTHER, SELFPAY ==
--- NOTE | 2024-06-17 07:49 | DI.RAD.S_ITS ---
PROCEDURE: XR WRIST LT MIN 3V INDICATIONS: Pain TECHNIQUE: 4 views of the wrist were acquired. COMPARISON: None. FINDINGS: Bones: No fractures or dislocations. No suspicious bony lesions. Soft tissues: No suspicious soft tissue calcifications. IMPRESSION: No acute bony abnormality. Dictated by: Anup Vital M.D. on 06/18/2024 at 5:58 Approved by: Anup Vital M.D. on 06/18/2024 at 5:59
--- NOTE | 2024-06-17 07:49 | DI.RAD.S_ITS ---
PROCEDURE: XR WRIST RT MIN 3V INDICATIONS: Pain TECHNIQUE: 4 views of the wrist were acquired. COMPARISON: None. FINDINGS: Bones: No fractures or dislocations. No suspicious bony lesions. Soft tissues: No suspicious soft tissue calcifications. IMPRESSION: No acute bony abnormality. Dictated by: Anup Vital M.D. on 06/18/2024 at 5:57 Approved by: Anup Vital M.D. on 06/18/2024 at 5:58
[2024-06-17 09:11] LABS: C-Reactive Protein Quant < 0.5 mg/dL (<1.0)
[2024-06-17 11:41] LABS: Erythrocyte Sedimentation Rate 11 MM/HR (0-20)
== END ==
PROVIDERS: PCP Physician Assistant; Referring Provider Physician Assistant; Visit Provider Physician Assistant
DX: G56.03 Carpal tunnel syndrome, bilateral upper limbs (principal); M19.90 Unspecified osteoarthritis, unspecified site
CPT/HCPCS: 36415; 73110; 85651; 86140

== ENCOUNTER → 2024-08-09 14:39 | Outpatient (CLI) | payer OTHER, SELFPAY ==
[2024-08-09 15:27] LABS: Add Manual Diff / Slide Review NO; Basophils Absolute Auto 0 /uL (0-100); Basophils Percent Auto 0.2 % (0-2); Eosinophils Absolute Auto 200 /uL (0-450); Eosinophils Percent Auto 1.8 % (2-4); Hematocrit 39.6 % (36-46); Hemoglobin 13.5 g/dL (12.0-16.0); Lymphocytes Absolute Auto 3100 /uL (1100-4500); Lymphocytes Percent Auto 35.5 % (25-40); Mean Corpuscular HGB Conc 34.1 % (30-36); Mean Corpuscular Hemoglobin 30.4 PG (26-34); Mean Corpuscular Volume 89.3 fL (80-100); Monocytes Absolute Auto 300 /uL (0-900); Monocytes Percent Auto 3.4 % (3-14); Neutrophils Absolute Auto 5200 /uL (1500-7000); Neutrophils Percent Auto 59.1 % (50-75); Platelet Count 195 X10^3/uL (150-400); Red Blood Cell Count 4.44 X10^6/uL (4.0-5.2); Red Cell Distribution Width 12.4 % (11.6-14.8); White Blood Cell Count 8.7 X10^3/uL (4.5-11.0)
[2024-08-09 15:53] LABS: Alanine Aminotransferase 79 IU/L (<35); Albumin 4.8 g/dL (3.5-5.0); Albumin Globulin Ratio 1.7 (1.0-2.8); Alkaline Phosphatase 42 U/L (38-126); Aspartate Aminotransferase 49 IU/L (14-36); BUN Creatinine Ratio 18.1 (6-22); Bilirubin Total 0.4 mg/dL (0.2-1.3); Blood Urea Nitrogen 13 mg/dL (7-17); Calcium 9.8 mg/dL (8.4-10.2); Carbon Dioxide 25 mmol/L (22-32); Chloride 104 mmol/L (98-107); Estimated Glomerular Filt Rate > 60 mL/min (>60); Globulin 2.8 g/dL (1.7-4.1); Glucose 98 mg/dL (70-99); HEMOLYSIS < 15 (0-50); Sodium 139 mmol/L (137-145); Total Protein 7.6 g/dL (6.3-8.2)
[2024-08-09 16:24] LABS: TSH w/ Reflex to FT4 1.16 uIU/mL (0.47-4.68)
[2024-08-09 16:59] LABS: Folate 6.3 ng/mL (2.76-20.0); Vitamin B12 720 pg/mL (239-931)
== END ==
PROVIDERS: PCP Family Medicine; Referring Provider Family Medicine; Visit Provider Family Medicine
DX: R29.898 Other symptoms and signs involving the musculoskeletal system (principal); R51.9 Headache, unspecified; G89.29 Other chronic pain; G62.9 Polyneuropathy, unspecified; N92.0 Excessive and frequent menstruation with regular cycle; F32.9 Major depressive disorder, single episode, unspecified
CPT/HCPCS: 36415; 80053; 82607; 82746; 83036; 84443; 85025; 86038

== ENCOUNTER → 2024-08-12 18:30 | Outpatient (CLI) | payer OTHER, SELFPAY ==
--- NOTE | 2024-08-12 18:32 | DI.MRI.S_ITS ---
PROCEDURE: MR HEAD/BRAIN WO CON INDICATIONS: Chronic headaches TECHNIQUE: Noncontrast axial T1 spin echo, axial T2 fast spin echo, sagittal and axial FLAIR, coronal T2 fast spin echo, axial gradient echo, axial diffusion and ADC through the brain. COMPARISON: None. FINDINGS: Image quality: Excellent. CSF Spaces: Basal cisterns are patent. No extra-axial fluid collections. Ventricles are normal in size and shape. Brain: No intracranial masses or hemorrhage. Azar/white matter interface is normal. Brainstem appears normal. Diffusion-weighted images demonstrate no acute infarct. No chronic ischemic insults. Normal intravascular flow voids are present. Skull and face: Calvarium has normal marrow signal. Orbits appear normal. Sinuses: Sinuses and mastoids are clear. IMPRESSION: No acute intracranial abnormalities. No cause for patient's symptoms is identified. Normal appearance of the brain. Dictated by: Karlos Vanegas M.D. on 08/14/2024 at 14:53 Approved by: Karlos Vanegas M.D. on 08/14/2024 at 14:55
== END ==
LOC: MRI 18:31
PROVIDERS: PCP Family Medicine; Referring Provider Family Medicine; Visit Provider Family Medicine
DX: R51.9 Headache, unspecified (principal); G89.29 Other chronic pain
CPT/HCPCS: 70551

== ENCOUNTER → 2024-10-04 16:27 | Outpatient (CLI) | payer OTHER, SELFPAY ==
[2024-10-04 17:26] LABS: Alanine Aminotransferase 79 IU/L (<35); Albumin 4.6 g/dL (3.5-5.0); Albumin Globulin Ratio 1.4 (1.0-2.8); Alkaline Phosphatase 46 U/L (38-126); Blood Urea Nitrogen 12 mg/dL (7-17); Calcium 9.3 mg/dL (8.4-10.2); Carbon Dioxide 27 mmol/L (22-32); Chloride 105 mmol/L (98-107); Estimated Glomerular Filt Rate > 60 mL/min (>60); Globulin 3.3 g/dL (1.7-4.1); Glucose 105 mg/dL (70-99); HEMOLYSIS < 15 (0-50); Potassium 3.9 mmol/L (3.4-5.1); Sodium 140 mmol/L (137-145); Total Protein 7.9 g/dL (6.3-8.2)
== END ==
PROVIDERS: Family Provider Family Medicine; PCP Family Medicine; Referring Provider Family Medicine; Visit Provider Family Medicine
DX: R79.89 Other specified abnormal findings of blood chemistry (principal)
CPT/HCPCS: 36415; 80053

== ENCOUNTER → 2024-11-17 08:42 | Outpatient (CLI) | payer OTHER, SELFPAY | LOC: PHYS 08:42 | PROVIDERS: Family Provider Family Medicine; PCP Family Medicine; Referring Provider Family Medicine; Visit Provider Family Medicine | DX: R29.898 Other symptoms and signs involving the musculoskeletal system (principal) | CPT/HCPCS: 95886; 95911 ==

== ENCOUNTER → 2024-11-24 08:34 | Outpatient (CLI) | payer OTHER, SELFPAY | LOC: PHYS 08:35 | PROVIDERS: Family Provider Family Medicine; PCP Family Medicine; Referring Provider Family Medicine; Visit Provider Family Medicine | DX: R29.898 Other symptoms and signs involving the musculoskeletal system (principal); G62.9 Polyneuropathy, unspecified | CPT/HCPCS: 95886; 95913 ==

== ENCOUNTER 2024-12-12 12:47 | Outpatient (RCR) | payer OTHER, SELFPAY ==
--- NOTE | 2024-12-12 15:46 | PT.OIE ---
Current Diagnoses Radiculopathy, site unspecified (12/12/24) Past Medical History (This Medical Record has been edited. 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 Action required.) Anesthesia H/O removal of cyst (~2014) History of tubal ligation (~02/2023) S/P Status post bilateral salpingectomy (~02/2023) Status post endometrial ablation (~02/2023) [place] teeth extracted (~2013) Visit Care Team Role Provider Type Sherry Suero MD Attending Provider Physician Family Provider Other Providers Primary Care Provider Referring Provider Specialty: [facility] RADAR TECHNICIAN Address: [address] [place] [address] Email: [email or web address] Physical Therapy Initial Evaluation PT OP: Lower Back/Lower Extremity Start: 12/12/24 13:09 Freq: Status: Active Protocol: Document 12/12/24 13:13 SAMY (Rec: 12/12/24 15:45 SAMY [id number]) Out-Patient Physical Therapy Visit Information Visit Information Visit Type Initial Evaluation Visit Start Time 13:08 Visit Stop Time 13:45 Visit Number 1 Number of [employer] Visits 0 Progress Note Due 01/11/25 OP-PT Subjective Patient Comments Patient Comments History of current diagnosis: Patient reports her symptoms started about six months ago. Her symptoms started as pins and needles down her R leg and she developed symptoms down her L leg about two months ago. She had an EMG on November 17 and reports she had some back pain started after that appointment. Occupation: Playground Worker at [employer] Physical activities/ hobbies: Climbs/ crawls at work, carrying/ moving 50# wheels of wire. Hikes about 3 miles on average per week outside of work. Pain location: Across low back, pins and needles down R leg Pain description: Sharp Pain 0-10/10 (current): 6/10 Pain 0-10/10 (worst): 6/10 Pain 0-10/10 (best): 0/10 Aggravating: Sitting, laying down, carrying load unilaterally (ladder at work) Alleviating: Standing, walking around, heat Function prior to injury: Independent with all ADLs Function current: Independent with all ADLs - limited with carrying things at work, sitting down, laying down (sleeping at night) Patient goals: Improve pain levels with sitting and laying down Palpation Assessment Location Lumbar region Palpation Details Paraspinals adjacent to L1-L5, negative bilaterally Spinous processes L1-S1, negative bilaterally QL region, negative bilaterally Lumbar Spine Range of Motion Lumbar Spine Active Comments Movement screen: Flexion: Limited Extension: WFL R side bending: WFL L side bending:WFL R rotation: WFL L rotation: WFL, pain reproduction in L low back Squat: reduced depth, anterior knee translation Hinge: WFL, no pain reproduction Special Tests Other Special Tests Special Tests Repeated movement testing: Flexion: No centralization or peripheralization Extension: No centralization or peripheralization Seated slump test: - B Therapeutic Exercises Prone Exercises Thread the needle Side bilateral Reps/Minutes x10 each side Cat Cow Reps/Minutes x10 Prone press up Reps/Minutes x15 Physical Therapy Assessment Rehab Potential Rehabilitation Good Potential Evaluation Complexity Number of Personal 0 Factors/ Comorbidities Number of Body 1-2 Systems Impaired Clinical Stable Presentation at Evaluation Impairments Impairments Activity Tolerance,Coordination,Functional Activities, Functional Mobility,Pain,Posture,ROM,Strength Goals Three Impairment General function Short Term Goal (STG Patient will report a GROC of 25% in order to show an ) increase in self-perceived function. STG Duration 3 weeks Correction Goal (LTG) Patient will report a GROC of 50% in order to show an increase in self-perceived function. LTG Duration 6 weeks Two Impairment Standing unilateral load tolerance Short Term Goal (STG Patient will carry 30# in a suitcase position for 3 ) minutes with no increase in pain levels in order to better function with carrying a ladder at work. STG Duration 3 weeks Clinic Scheduler Goal (LTG) Patient will carry 50# in a suitcase position for 3 minutes with no increase in pain levels in order to better function with carrying a ladder at work. LTG Duration 6 weeks One Impairment Symptom intensity Short Term Goal (STG Patient will report a reduction in pain at worst to a 4 ) /10 in order to better sleep through the night. STG Duration 3 weeks Correction Goal (LTG) Patient will report a reduction in pain at worst to a 4 /10 in order to better sleep through the night. LTG Duration 6 weeks Assessment Summary Assessment Patient presenting to PT with complaints of chronic radiating low back pain that is limiting function with sleeping through the night, sitting for extended periods, and carrying things at work. Objective investigation revealed no centralization or peripheralization with movement testing, deficits in lumbar flexion ROM (see above), and no other notable deficits. Presentation is consistent with non-direction -specific lumbar radiculopathy and patient will benefit from PT to address deficits and return to prior level of function. Physical Therapy Plan Frequency and Duration Frequency of 2x/Week Treatment Duration of 12 treatment (weeks) Plan of Care Start 12/12/24 Date Plan of Care End 03/12/25 Date Therapeutic Interventions Therapeutic Balance Training,Coordination Training,Gait Training, Interventions Home Exercise Program,Joint Mobilizations,Manual Therapy,Neuromuscular Re-education,Patient/Caregiver Education,Self-Care/Home Management,Soft Tissue Mobilization,Taping,Therapeutic Activities,Therapeutic Exercises Modalities Biofeedback,Cold Pack/Ice Massage,Electric Stimulation, Hot Packs,Iontophoresis,Traction- Mechanical,Ultrasound ,Vasopneumatic Devices Next Visit Focus/Plan Next Note Type Treatment Note Next Visit Plan Follow up on home exercises, add suitcase carry, hinge pattern strengthening.
--- NOTE | 2025-02-16 14:27 | PT.OPDS ---
Current Diagnoses Radiculopathy, site unspecified (12/12/24) Visit Care Team Role Provider Type Sherry Suero MD Attending Provider Physician Family Provider Other Providers Primary Care Provider Referring Provider Specialty: Family Practice [employer] Address: [facility] [place], [address] Email: [email or web address] Visit Number Visit Number 1 Discharge Summary PT OP: Lower Back/Lower Extremity Start: 12/12/24 13:09 Freq: Status: Active Protocol: Document 02/16/25 14:26 SAMY (Rec: 02/16/25 14:27 SAMY [id number]) Out-Patient Physical Therapy Visit Information Visit Information Visit Type Discharge Summary Physical Therapy Assessment Assessment Summary Assessment Patient has cancelled her remaining PT appointments and will be discharged at this time due to lack of follow up. Please reach out to [facility] PT department with any questions.
== END 2025-02-21 10:01 | disposition home or self-care (01) ==
LOC: PHYS 12:47
PROVIDERS: Family Provider Family Medicine; PCP Family Medicine; Referring Provider Family Medicine; Visit Provider Family Medicine
DX: M54.10 Radiculopathy, site unspecified (principal)
CPT/HCPCS: 97110; 97161

== ENCOUNTER → 2024-12-21 16:21 | Outpatient (CLI) | payer OTHER, SELFPAY ==
[2024-12-21 18:00] LABS: Alanine Aminotransferase 63 IU/L (<35); Albumin 4.5 g/dL (3.5-5.0); Albumin Globulin Ratio 1.5 (1.0-2.8); Alkaline Phosphatase 40 U/L (38-126); Blood Urea Nitrogen 16 mg/dL (7-17); Calcium 9.1 mg/dL (8.4-10.2); Carbon Dioxide 27 mmol/L (22-32); Estimated Glomerular Filt Rate > 60 mL/min (>60); Globulin 3.0 g/dL (1.7-4.1); Glucose 87 mg/dL (70-99); HEMOLYSIS < 15 (0-50); Total Protein 7.5 g/dL (6.3-8.2)
[2024-12-21 18:25] LABS: TSH w/ Reflex to FT4 1.93 uIU/mL (0.47-4.68)
[2024-12-21 19:55] LABS: Chloride 105 mmol/L (98-107); Potassium 3.8 mmol/L (3.4-5.1); Sodium 139 mmol/L (137-145)
[2024-12-22 23:12] LABS: Hepatitis A Antibody IgM Negative (Negative); Hepatitis B Core Antibody IgM Negative (Negative); Hepatitis C Antibody Non Reactive (Non Reactive)
[2024-12-23 20:36] LABS: Anti Mitochondrial ABY IGG <20.0 Units (0.0-20.0)
[2024-12-24 22:07] LABS: ANA Screen, IFA Negative (.)
[2025-01-03 17:09] LABS: Alpha 1 antitrypsin pheno Rflx Not Indicated (.)
== END ==
PROVIDERS: Family Provider Family Medicine; PCP Family Medicine; Referring Provider Family Medicine; Visit Provider Family Medicine
DX: R79.89 Other specified abnormal findings of blood chemistry (principal)
CPT/HCPCS: 36415; 80053; 80074; 81332; 82103; 83516; 84443; 86015; 86038

== ENCOUNTER → 2024-12-21 18:32 | Outpatient (CLI) | payer OTHER, SELFPAY ==
--- NOTE | 2024-12-21 18:34 | DI.MRI.S_ITS ---
PROCEDURE: MR LUMBAR SPINE WO CON INDICATIONS: pain TECHNIQUE: Noncontrast sagittal T1 spin echo and T2 fast echo, sagittal STIR, and T2 fast spin echo through the lumbar spine. In cases with scoliosis, additional coronal T2 fast spin echo may be performed. COMPARISON: None. FINDINGS: Image quality: Excellent. Alignment and Curvature: Straightening of the normal lumbar lordosis. Bone Marrow: Marrow is of normal overall signal. No acute vertebral body compression fractures. Spinal Cord: Conus medullaris terminates at the L1 level. Visualized cord demonstrates normal signal and size. Paraspinous Soft Tissues: No paravertebral masses. T12-L1: Normal appearance. L1-L2: Mild facet arthropathy. No central canal or neural foraminal stenosis. L2-L3: Mild facet arthropathy. No central canal or neural foraminal stenosis. L3-L4: Mild facet arthropathy. No central canal or neural foraminal stenosis. L4-L5: Mild facet arthropathy. No central canal or neural foraminal stenosis. L5-S1: Mild facet arthropathy. No central canal or neural foraminal stenosis. IMPRESSION: Mild multilevel facet arthropathy. No significant central canal or neural foraminal stenosis. Approved by: Karlos Vanegas M.D. on 12/22/2024 at 1:19
--- NOTE | 2024-12-21 18:34 | DI.MRI.S_ITS ---
PROCEDURE: MR CERVICAL SPINE WO CON INDICATIONS: pain TECHNIQUE: Noncontrast sagittal T1 spin echo and T2 fast spin echo, sagittal STIR, foraminal oblique sagittal T2 fast spin echo, and axial gradient echo or T2 fast spin echo through the cervical spine. COMPARISON: None. FINDINGS: Image quality: Excellent. Alignment and Curvature: There is normal bony alignment. Bone Marrow: Marrow demonstrates normal overall signal. Spinal Cord: Visualized spinal cord has normal size and signal. No cerebellar tonsillar herniation. Paraspinous Soft Tissues: No paravertebral masses. Prevertebral soft tissues are normal in thickness. C2-C3: Mild right facet and uncovertebral arthropathy. No central canal stenosis. Mild right and no left neural foraminal stenosis. C3-C4: Desiccation and mild posterior disc osteophyte complex. Facet uncovertebral arthropathy. Mild right and no left neural foraminal stenosis. No central canal stenosis. C4-C5: Disc desiccation. Facet and uncovertebral arthropathy. Mild bilateral neural foraminal stenosis. C5-C6: Disc desiccation and minimal posterior disc osteophyte complex. No significant central canal or neural foraminal stenosis. C6-C7: Disc desiccation. No significant central canal or neural foraminal stenosis. C7-T1: No central canal or neural foraminal stenosis. IMPRESSION: Mild degenerative changes of the cervical spine as described above. No high- grade stenosis. Dictated by: Karlos Vanegas M.D. on 12/22/2024 at 1:15 Approved by: Karlos Vanegas M.D. on 12/22/2024 at 1:17
== END ==
LOC: MRI 18:33
PROVIDERS: Family Provider Family Medicine; PCP Family Medicine; Referring Provider Family Medicine; Visit Provider Family Medicine
DX: M54.50 Low back pain, unspecified (principal); G58.9 Mononeuropathy, unspecified; M62.89 Other specified disorders of muscle; R79.89 Other specified abnormal findings of blood chemistry; M54.2 Cervicalgia; M47.812 Spondylosis without myelopathy or radiculopathy, cervical region; M25.78 Osteophyte, vertebrae; M48.02 Spinal stenosis, cervical region; M47.816 Spondylosis without myelopathy or radiculopathy, lumbar region; M47.817 Spondylosis without myelopathy or radiculopathy, lumbosacral region
CPT/HCPCS: 36415; 72141; 72148; 80053; 80074; 81332; 82103; 83516; 84443; 86015; 86038

== ENCOUNTER → 2024-12-28 09:11 | Outpatient (CLI) | payer OTHER, SELFPAY | PROVIDERS: Family Provider Family Medicine; PCP Family Medicine; Visit Provider Physician Assistant Medical | DX: R30.0 Dysuria (principal) | CPT/HCPCS: 87077; 87086 ==